=== PATIENT | male | born 1950 ===

== ENCOUNTER 2021-05-01 08:30 | Day surgery (SDC) | payer MEDICARE, OTHER ==
[~2021-05-01] VITALS: Ht 180.3 cm; Wt 121.0 kg
[2021-05-01] MEDS ORDERED: GLUCOPHAGE500 MG/TAB PO (08:48)
[2021-05-01] MEDS ORDERED: LIPITOR 10MG10 MG PO (08:49)
[2021-05-01] MEDS ORDERED: THE MEDICINE S200 M2 PO (08:50)
[2021-05-01] MEDS ORDERED: RT ADVAIR 128 DISKUS IH (08:52)
[2021-05-01] MEDS ORDERED: SAW PALMETTO500 M1 PO ×2 (08:54→08:55)
[2021-05-01] MEDS ORDERED: ALEVE 220MG220 MG PO (08:54)
[2021-05-01 09:37] VITALS: BP 133/78; PULSE 16; TEMP 97.3
[2021-05-01 10:15] VITALS: BP 115/72; PULSE 64; TEMP 97.5
[2021-05-01 10:30] VITALS: BP 133/72; PULSE 60
[2021-05-01 10:45] VITALS: BP 121/58; PULSE 62
[2021-05-01 11:00] VITALS: BP 124/74; PULSE 68
--- NOTE | 2021-05-01 12:23 | NUR ---
1015: PATIENT ARRIVED BACK INTO [facility] VIA CART. AMBULATED TO CHAIR. REQUESTING CRANBERRY JUICE AND SALTINES, TOLERATED WELL WITH NO COMPLAINT OF NAUSEA OR PAIN. 1030: VITALLY STABLE 1045: VITALLY STABLE. DR. BARRETT TO SEE PATIENT, QUESTIONS ANSWERED. 1100: VITALLY STABLE. PATIENT GOT DRESSED, WENT TO RESTROOM. ATTEMPTED TO CONTACT RIDE WITH NO ANSWER. 1130: ATTEMPTED TO CONTACT PT'S RIDE WITH NO ANSWER. DISCHARGE INFORMATION GIVEN TO PATIENT, QUESTIONS ANSWERED. 1200: PATIENT NOTIFIED RN THAT RIDE HAD ARRIVED. ESCORTED PATIENT TO ENTRANCE. PATIENT AMBULATED WITHOUT ASSISTANCE.
== END 2021-05-01 12:05 | disposition home or self-care (01) ==
LOC: SDCO 08:30
DX: K22.2 Esophageal obstruction (principal); K21.00 Gastro-esophageal reflux disease with esophagitis, without bleeding; K22.70 Barrett's esophagus without dysplasia; K58.1 Irritable bowel syndrome with constipation; K58.0 Irritable bowel syndrome with diarrhea; E78.5 Hyperlipidemia, unspecified; E11.9 Type 2 diabetes mellitus without complications; M19.90 Unspecified osteoarthritis, unspecified site; G47.33 Obstructive sleep apnea (adult) (pediatric); Z79.84 Long term (current) use of oral hypoglycemic drugs; Z85.828 Personal history of other malignant neoplasm of skin; Z79.899 Other long term (current) drug therapy
CPT/HCPCS: C1726; J2704; J7030